=== PATIENT | male | born 1965 | race African-American/Black ===

== ENCOUNTER 2018-12-07 10:14 | Observation (INO) | payer BC ==
--- NOTE | 2018-12-07 10:44 | PDOC ---
History of Present Illness - General Chief Complaint: Shortness of Breath Stated Complaint: SOB Time Seen by Provider: 12/07/18 10:32 - History of Present Illness Initial Comments: The pt is a 53M w/ a history of HTN, HLD, and an 'odd EKG' who presents for evaluation of 2-3 days of worsening shortness of breath and orthopnea. He states that he has had similar symptoms previously but not this severe. He states that he was not able to sleep last night because of his dyspnea. Endorses intermittent nausea over the last 2 days but denies vomiting. He denies associated fevers/chills, LARA, vision changes, chest pain, abdominal pain , diarrhea, weakness, or dizziness. He states he did not take his BP meds today because he ran out yesterday. PMH: HTN, HLD PSH: L hand washout 2/2 staph, RIHR Meds: Metoprolol, Lisinopril, HCTZ, ASA 81mg Allergies: Denies SH: +Tobacco; +Social EtOH; +Occasional TH[employer] Student Advisor: Dr. Micky Briones @ [facility] 12/07/18 10:52 Past History - Past Medical History Allergies/Adverse Reactions: Allergies Allergy/AdvReac Type Severity Reaction Status Date / Time No Known Allergies Allergy Verified 12/07/18 10:15 Home Medications: Ambulatory Orders Hydrochlorothiazide [Hctz -] 25 mg PO DAILY 12/07/18 Lisinopril [Prinivil] 10 mg PO DAILY 12/07/18 Metoprolol Succinate [Toprol Xl] 100 mg PO DAILY 12/07/18 COPD: No HTN: Yes Hypercholesterolemia: Yes Other medical history: MIGRIANE - Suicide/Smoking/Psychosocial Hx Smoking Status: Yes Smoking History: Current some day smoker Number of Cigarettes Smoked Daily: 2 Information on smoking cessation initiated: Yes Hx Alcohol Use: Yes (OCASIONAL) Drug/Substance Use Hx: No Review of Systems - Review of Systems Able to Perform ROS?: Yes Comments:: GENERAL/CONSTITUTIONAL: No fever or chills. No weakness HEAD, EYES, EARS, NOSE AND THROAT: No change in vision. No ear pain or discharge. No sore throat CARDIOVASCULAR: No chest pain RESPIRATORY: Denies cough, hemoptysis GASTROINTESTINAL: No vomiting, diarrhea or constipation GENITOURINARY: No dysuria, frequency, or change in urination MUSCULOSKELETAL: No joint or muscle swelling or pain. No neck or back pain SKIN: No rash NEUROLOGIC: No headache, vertigo, loss of consciousness, or change in strength/ sensation ENDOCRINE: No increased thirst. No abnormal weight change HEMATOLOGIC/LYMPHATIC: No anemia, easy bleeding, or history of blood clots ALLERGIC/IMMUNOLOGIC: No hives or skin allergy 12/07/18 10:57 Is the patient limited Cuban proficient: No *Physical Exam - Vital Signs Last Vital Signs Temp Pulse Resp BP Pulse Ox 98 F 86 19 156/110 H 100 12/07/18 10:14 12/07/18 10:14 12/07/18 10:14 12/07/18 10:14 12/07/18 10:14 - Physical Exam Comments: GENERAL: Awake, alert, and oriented to person/place/time, in no acute distress HEAD: No signs of trauma, normocephalic, atraumatic EYES: PERRLA, EOMI, sclera anicteric, conjunctiva clear ENT: Hearing grossly normal, nares patent, oropharynx clear without exudates. Moist mucosa LUNGS: Tachypnea w/ walking and prolonged talking, mild crackles b/l but equal breath sound b/l HEART: Regular rate w/ irregular rhythm, normal S1 and S2, no murmurs appreciated, peripheral pulses normal and equal bilaterally ABDOMEN: Soft, nontender, normoactive bowel sounds. No guarding, no rebound EXTREMITIES: Normal inspection, Normal range of motion, 1+ BLE edema to mid-kerns NEUROLOGICAL: Cranial nerves II through XII grossly intact. Normal speech, normal gait, no focal sensorimotor deficits SKIN: Warm, Dry 12/07/18 11:14 ED Treatment Course - LABORATORY CBC & Chemistry Diagram: 12/07/18 10:52 12/07/18 10:52 - RADIOLOGY Radiology Studies Ordered: Category Date Time Status CHEST PA & LAT [RAD] Stat Radiology 12/07/18 10:43 Ordered Medical Decision Making - Medical Decision Making The pt is a 53M w/ a history of HTN who presents for evaluation of 3 days of HERMOSILLO and orthopnea Ddx includes ACS, HF, PNA, pulmonary effusion/edema ED Course CMP, Cardiac profile, Mg, BNP, CBC ECG CXR 12/07/18 11:14 CXR w/ no acute pathology Lytes wnl No BETH LFTs wnl 12/07/18 11:58 Call placed to pt's Cardiology office, awaiting call back. ECG of most recent from their office faxed. Both with evidence of multifocal atrial foci. ECG today w/ evidence of multiple foci; HR 80; QTc 454; T-wave inversions in I Trop I neg CK mildly elevated BNP 1135, possible new onset HF given orthopnea/HERMOSILLO and hx of dysrhythmia Will give Lasix 40mg IV once 12/07/18 12:50 Will obtain ECHO Plan for admission for likely new onset HF Pt signed out to admitting team Dispo: Admit *DC/Admit/Observation/Transfer Diagnosis at time of Disposition: Shortness of breath Heart failure Qualifiers: Heart failure type: unspecified Heart failure chronicity: unspecified Qualified Code(s): I50.9 - Heart failure, unspecified Hypertension Qualifiers: Hypertension type: unspecified Qualified Code(s): I10 - Essential (primary) hypertension - Discharge Dispostion Condition at time of disposition: Good Decision to Admit order: Yes - Referrals - Patient Instructions - Post Discharge Activity
--- NOTE | 2018-12-07 10:46 | PDOC ---
Attending Attestation - Resident Resident Name: William Barajas - ED Attending Attestation I have performed the following: I have examined & evaluated the patient, The case was reviewed & discussed with the resident, I agree w/resident's findings & plan, Exceptions are as noted - HPI HPI: 53 yo M history HTN, HL, prior abnormal EKG (unclear what the prior finding was , he follows with Dr. Micky Briones at [facility] for cardio) presenting with progressively worsening SOB for the past few days. He has noted intermittent swelling of his ankles (improved at present). Symptoms worsen when he lies flat , improve with sitting upright. He notes that he gets winded much more easily than usual, even with speaking. He also noticed that his chest is making rattling sounds when he tries to breathe at night. Denies any recent chest pain , unilateral leg swelling, fever, cough. +Nasal congestion. - Physicial Exam PE: GENERAL: Awake, alert, and fully oriented, in no acute distress HEAD: No signs of trauma EYES: PERRLA, EOMI, sclera anicteric, conjunctiva clear ENT: Auricles normal inspection, hearing grossly normal, nares patent, oropharynx clear without exudates. Moist mucosa NECK: Normal ROM, supple, no lymphadenopathy, JVD, or masses LUNGS: Good air entry B/L, with crackles appreciated mcfp up lung aguero B/L HEART: Regular rate and rhythm, normal S1 and S2, no murmurs, rubs or gallops ABDOMEN: Soft, nontender, normoactive bowel sounds. No guarding, no rebound. No masses EXTREMITIES: Normal range of motion, no edema. No clubbing or cyanosis. No cords, erythema, or tenderness NEUROLOGICAL: Cranial nerves II through XII grossly intact. Normal speech, normal gait. Motor and sensation intact SKIN: Warm, Dry, normal turgor, no rashes or lesions noted. - Medical Decision Making Pt with abnormal EKG in ED- suspicious for MAT, as there are multiple different P waves. 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 Presentation is concerning for CHF. Will obtain labs, CXR. Will plan for admission for further workup. 12/07/18 13:32 Lab findings concerning for new onset CHF. Echo ordered. Patient endorsed to hospitalist.
[2018-12-07] MEDS ORDERED: METOPROLOL TARTRATE 50 MG TABLET (FP) PO ONE (10:51)
[2018-12-07] MEDS ORDERED: HYDROCHLOROTHIAZIDE 25 MG TABLET (FP) PO ONE (10:51)
[2018-12-07] MEDS ORDERED: LISINOPRIL 10 MG TABLET (FP) PO ONE (10:51)
[2018-12-07] MEDS ORDERED: HYDROCHLOROTHIAZIDE 25 MG TABLET (FP) ONE (10:54)
[2018-12-07] MEDS ORDERED: METOPROLOL TARTRATE 50 MG TABLET (FP) ONE (10:55)
[2018-12-07] MEDS ORDERED: LISINOPRIL 5 MG TABLET (FP) ONE (10:55)
[2018-12-07 11:28] LABS: INR 1.14 (0.82-1.09); PROTHROMBIN TIME (PATIENT) 12.5 SEC (10.2-13.0)
[2018-12-07 11:32] LABS: ALBUMIN 3.7 g/dl (3.4-5.0); BILIRUBIN,TOTAL 1.2 mg/dl (0.2-1); CALCIUM 8.7 mg/dl (8.5-10); CREATININE 1.1 mg/dl (0.55-1.3); POTASSIUM 3.8 mmol/L (3.5-5.1); TOT PROT 6.9 g/dl (6.4-8.2)
[2018-12-07 13:00] LABS: BASO % 0.4 % (0-2.0); EOS % 1.2 % (0-4.5); HEMOGLOBIN 13.8 GM/dL (11.7-16.9); LYMPH % 28.5 % (8-40); MCH 30.9 pg (25.7-33.7); MCHC 32.7 g/dl (32.0-35.9); MEAN CELL VOLUME 94.2 fl (80-96); MEAN PLT VOLUME 10.3 fl (7.5-11.1); NEUT % 63.9 % (42.8-82.8); PLATELET COUNT 188 K/MM3 (134-434); RBC 4.46 M/mm3 (4.00-5.60); RDW 15.4 % (11.9-15.9); WHITE BLOOD COUNT 8.8 K/mm3 (4.0-10.0)
[2018-12-07] MEDS ORDERED: FUROSEMIDE 40 MG/4 ML INJECTABLE VIAL IVPUSH ONE ×2 (13:07→15:29)
[2018-12-07] MEDS ORDERED: FUROSEMIDE 40 MG/4 ML INJECTABLE VIAL ONE ×2 (13:13→13:17)
--- NOTE | 2018-12-07 13:23 | HP ---
CHIEF COMPLAINT: Shortness of breath PCP: formerly Dr. Moran Sword Swallower: Dr. Micky Briones [place] HISTORY OF PRESENT ILLNESS: 53 year-old male with a PMH significant for HTN, HLD, and migraines. Presented to ED earlier today with complaint of SOB, HERMOSILLO, and orthopnea x 5 days. Patient has been traveling and attending social dinners for work for the past several weeks and it has been difficult to adhere to a low-sodium diet. He works out regularly but has been noticing increased SOB and HERMOSILLO. Over the past 4 or 5 days he has become acutely SOB even when walking his dog. Last night he could not lay flat without feeling someone was putting water over his face. He felt a whistling in his chest on deep expiration. Patient estimates his dry weight is 255, he presently weighs 270. Patient denies chest pain, palpitations, dizziness , lightheadedness, diaphoresis. He occasional has mild lower extremity edema. Patient ran out of his blood pressure medications which are prescribed by Dr. Briones and which he usually takes regularly. 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[employer]; Smoking: current smoker - 4 to 5 cigarettes per week Alcohol: occasional Drugs: no Family History: four paternal uncles all before age of 50 from heart disease Allergies No Known Allergies Allergy (Verified 12/07/18 10:15) HOME MEDICATIONS: Home Medications Medication Instructions Recorded Hydrochlorothiazide [Hctz -] 25 mg PO DAILY 12/07/18 Lisinopril [Prinivil] 10 mg PO DAILY 12/07/18 Metoprolol Succinate [Toprol Xl] 100 mg PO DAILY 12/07/18 REVIEW OF SYSTEMS CONSTITUTIONAL: Absent: fever, chills, diaphoresis, generalized weakness, malaise, loss of appetite, weight change HEENT: Absent: rhinorrhea, nasal congestion, throat pain, throat swelling, difficulty swallowing, mouth swelling, ear pain, eye pain, visual changes CARDIOVASCULAR: +peripheral edema, SOB, HERMOSILLO, orthopnea Absent: chest pain, syncope, palpitations, irregular heart rate, lightheadedness RESPIRATORY: Absent: wheezing, stridor, hemoptysis GASTROINTESTINAL: Absent: abdominal pain, abdominal distension, nausea, vomiting, diarrhea, constipation, melena, hematochezia GENITOURINARY: Absent: dysuria, frequency, urgency, hesitancy, hematuria, flank pain, genital pain MUSCULOSKELETAL: Absent: myalgia, arthralgia, joint swelling, back pain, neck pain SKIN: Absent: rash, itching, pallor HEMATOLOGIC/IMMUNOLOGIC: Absent: easy bleeding, easy bruising, lymphadenopathy, frequent infections ENDOCRINE: Absent: unexplained weight gain, unexplained weight loss, heat intolerance, cold intolerance NEUROLOGIC: Absent: headache, focal weakness or paresthesias, dizziness, unsteady gait, seizure, mental status changes, bladder or bowel incontinence PSYCHIATRIC: Absent: anxiety, depression, suicidal or homicidal ideation, hallucinations. PHYSICAL EXAMINATION Vital Signs - 24 hr 12/07/18 12/07/18 12/07/18 10:14 10:50 11:26 Temperature 98 F Pulse Rate 86 Pulse Rate [ 84 96 H Apical] Respiratory 19 19 Rate Blood Pressure 156/110 H Blood Pressure 170/135 H 155/111 H [Right Arm] O2 Sat by Pulse 100 100 Oximetry (%) 12/07/18 12:26 Temperature Pulse Rate Pulse Rate [ 74 Apical] Respiratory 18 Rate Blood Pressure Blood Pressure 145/106 H [Right Arm] O2 Sat by Pulse 98 Oximetry (%) GENERAL: Awake, alert, and fully oriented, in no acute distress. HEAD: Normal with no signs of trauma. EYES: Pupils equal, round and reactive to light, extraocular movements intact, sclera anicteric, conjunctiva clear. No lid lag. EARS, NOSE, THROAT: Ears normal, nares patent, oropharynx clear without exudates. Moist mucous membranes. NECK: Normal range of motion, supple without lymphadenopathy, JVD, or masses. LUNGS: Diminished breath sounds; mildly dyspneic with speaking. HEART: Regular rate and rhythm, S1 and S2 ABDOMEN: Soft, nontender, not distended, normoactive bowel sounds, no guarding, no rebound, no masses. No hepatomegaly or splenomegaly. MUSCULOSKELETAL: Normal range of motion at all joints. No bony deformities or tenderness. No CVA tenderness. UPPER EXTREMITIES: 2+ pulses, warm, well-perfused. No cyanosis. No clubbing. No peripheral edema. LOWER EXTREMITIES: 2+ pulses, warm, well-perfused. No calf tenderness. No peripheral edema. NEUROLOGICAL: Cranial nerves II-XII intact. Normal speech. Laboratory Results - last 24 hr 12/07/18 12/07/18 12/07/18 10:52 10:52 10:52 WBC 8.8 RBC 4.46 Hgb 13.8 Hct 42.0 MCV 94.2 MCH 30.9 MCHC 32.7 RDW 15.4 Plt Count 188 MPV 10.3 Absolute Neuts (auto) 5.6 Neutrophils % 63.9 Lymphocytes % 28.5 Monocytes % 6.0 Eosinophils % 1.2 Basophils % 0.4 Nucleated RBC % 0 PT with INR INR Sodium 141 Potassium 3.8 Chloride 105 Carbon Dioxide 24 Anion Gap 12 BUN 21 H Creatinine 1.1 Est GFR (CKD-EPI)AfAm 88.98 Est GFR (CKD-EPI)NonAf 76.77 Random Glucose 126 H Calcium 8.7 Magnesium Total Bilirubin 1.2 H AST 30 ALT 31 Alkaline Phosphatase 65 Creatine Kinase Creatine Kinase Index CK-MB (CK-2) Troponin I B-Natriuretic Peptide 1135.4 H Total Protein 6.9 Albumin 3.7 12/07/18 12/07/18 12/07/18 10:52 10:52 10:52 WBC RBC Hgb Hct MCV MCH MCHC RDW Plt Count MPV Absolute Neuts (auto) Neutrophils % Lymphocytes % Monocytes % Eosinophils % Basophils % Nucleated RBC % PT with INR 12.5 INR 1.14 Sodium Potassium Chloride Carbon Dioxide Anion Gap BUN Creatinine Est GFR (CKD-EPI)AfAm Est GFR (CKD-EPI)NonAf Random Glucose Calcium Magnesium Total Bilirubin AST ALT Alkaline Phosphatase Creatine Kinase 385 H Creatine Kinase Index 1.7 CK-MB (CK-2) 6.8 H Troponin I 0.03 B-Natriuretic Peptide Total Protein Albumin 12/07/18 11:00 WBC RBC Hgb Hct MCV MCH MCHC RDW Plt Count MPV Absolute Neuts (auto) Neutrophils % Lymphocytes % Monocytes % Eosinophils % Basophils % Nucleated RBC % PT with INR INR Sodium Potassium Chloride Carbon Dioxide Anion Gap BUN Creatinine Est GFR (CKD-EPI)AfAm Est GFR (CKD-EPI)NonAf Random Glucose Calcium Magnesium 1.9 Total Bilirubin AST ALT Alkaline Phosphatase Creatine Kinase Creatine Kinase Index CK-MB (CK-2) Troponin I B-Natriuretic Peptide Total Protein Albumin ASSESSMENT/PLAN 53 year-old male with a PMH significant for HTN, HLD, and migraines. Placed on observation for hypertensive urgency and diastolic heart failure. Diastolic heart dysfunction, acute --12/07 Echo: LV normal, EF 55%, impaired relaxation; RV normal; trace to mild MR; trace TR --clinical s/s: SOB, HERMOSILLO, orthopnea, up 15lbs from dry weight; BNP >1100 --troponin neg x 1, two pending --start Lasix IVP 40mg BID --daily weight --strict I&Os --telemetry monitoring Hypertensive urgency --BP improved with dosing of home anti-hypertensives --continue lisinopril, Toprol XL; hold HCTZ while on Lasix Hyperlipidemia --not on statin therapy Migraines --stable, last migraine 2 years ago FEN Fluids: PO intake adequate Electrolytes: replete as indicated; K>4, Mg>2 Nutrition: low sodium DVT prophylaxis: subq heparin Dispo: continues to require observation. Full code. Visit type - Emergency Visit Emergency Visit: Yes ED Registration Date: 12/07/18 Care time: The patient presented to the Emergency Department on the above date and was hospitalized for further evaluation of their emergent condition. - New Patient This patient is new to me today: Yes Date on this admission: 12/07/18 - Critical Care Critical Care patient: No
--- NOTE | 2018-12-07 13:50 | HP ---
CHIEF COMPLAINT: PCP: HISTORY OF PRESENT ILLNESS: ER course was notable for: (1) (2) (3) Recent Travel: PAST MEDICAL HISTORY: PAST SURGICAL HISTORY: Social History: Smoking: Alcohol: Drugs: Family History: Allergies No Known Allergies Allergy (Verified 12/07/18 10:15) HOME MEDICATIONS: Home Medications Medication Instructions Recorded Hydrochlorothiazide [Hctz -] 25 mg PO DAILY 12/07/18 Lisinopril [Prinivil] 10 mg PO DAILY 12/07/18 Metoprolol Succinate [Toprol Xl] 100 mg PO DAILY 12/07/18 REVIEW OF SYSTEMS CONSTITUTIONAL: Absent: fever, chills, diaphoresis, generalized weakness, malaise, loss of appetite, weight change HEENT: Absent: rhinorrhea, nasal congestion, throat pain, throat swelling, difficulty swallowing, mouth swelling, ear pain, eye pain, visual changes CARDIOVASCULAR: Absent: chest pain, syncope, palpitations, irregular heart rate, lightheadedness , peripheral edema RESPIRATORY: Absent: cough, shortness of breath, dyspnea with exertion, orthopnea, wheezing, stridor, hemoptysis GASTROINTESTINAL: Absent: abdominal pain, abdominal distension, nausea, vomiting, diarrhea, constipation, melena, hematochezia GENITOURINARY: Absent: dysuria, frequency, urgency, hesitancy, hematuria, flank pain, genital pain MUSCULOSKELETAL: Absent: myalgia, arthralgia, joint swelling, back pain, neck pain SKIN: Absent: rash, itching, pallor HEMATOLOGIC/IMMUNOLOGIC: Absent: easy bleeding, easy bruising, lymphadenopathy, frequent infections ENDOCRINE: Absent: unexplained weight gain, unexplained weight loss, heat intolerance, cold intolerance NEUROLOGIC: Absent: headache, focal weakness or paresthesias, dizziness, unsteady gait, seizure, mental status changes, bladder or bowel incontinence PSYCHIATRIC: Absent: anxiety, depression, suicidal or homicidal ideation, hallucinations. PHYSICAL EXAMINATION Vital Signs - 24 hr 12/07/18 12/07/18 12/07/18 10:14 10:50 11:26 Temperature 98 F Pulse Rate 86 Pulse Rate [ 84 96 H Apical] Respiratory 19 19 Rate Blood Pressure 156/110 H Blood Pressure 170/135 H 155/111 H [Right Arm] O2 Sat by Pulse 100 100 Oximetry (%) 12/07/18 12/07/18 12:26 13:32 Temperature Pulse Rate Pulse Rate [ 74 75 Apical] Respiratory 18 18 Rate Blood Pressure Blood Pressure 145/106 H 136/113 H [Right Arm] O2 Sat by Pulse 98 98 Oximetry (%) GENERAL: Awake, alert, and fully oriented, in no acute distress. HEAD: Normal with no signs of trauma. EYES: Pupils equal, round and reactive to light, extraocular movements intact, sclera anicteric, conjunctiva clear. No lid lag. EARS, NOSE, THROAT: Ears normal, nares patent, oropharynx clear without exudates. Moist mucous membranes. NECK: Normal range of motion, supple without lymphadenopathy, JVD, or masses. LUNGS: Breath sounds equal, clear to auscultation bilaterally. No wheezes, and no crackles. No accessory muscle use. HEART: Regular rate and rhythm, normal S1 and S2 without murmur, rub or gallop. ABDOMEN: Soft, nontender, not distended, normoactive bowel sounds, no guarding, no rebound, no masses. No hepatomegaly or splenomegaly. MUSCULOSKELETAL: Normal range of motion at all joints. No bony deformities or tenderness. No CVA tenderness. UPPER EXTREMITIES: 2+ pulses, warm, well-perfused. No cyanosis. No clubbing. No peripheral edema. LOWER EXTREMITIES: 2+ pulses, warm, well-perfused. No calf tenderness. No peripheral edema. NEUROLOGICAL: Cranial nerves II-XII intact. Normal speech. Normal gait. PSYCHIATRIC: Cooperative. Good eye contact. Appropriate mood and affect. SKIN: Warm, dry, normal turgor, no rashes or lesions noted, normal capillary refill. Laboratory Results - last 24 hr 12/07/18 12/07/18 12/07/18 10:52 10:52 10:52 WBC 8.8 RBC 4.46 Hgb 13.8 Hct 42.0 MCV 94.2 MCH 30.9 MCHC 32.7 RDW 15.4 Plt Count 188 MPV 10.3 Absolute Neuts (auto) 5.6 Neutrophils % 63.9 Lymphocytes % 28.5 Monocytes % 6.0 Eosinophils % 1.2 Basophils % 0.4 Nucleated RBC % 0 PT with INR INR Sodium 141 Potassium 3.8 Chloride 105 Carbon Dioxide 24 Anion Gap 12 BUN 21 H Creatinine 1.1 Est GFR (CKD-EPI)AfAm 88.98 Est GFR (CKD-EPI)NonAf 76.77 Random Glucose 126 H Calcium 8.7 Magnesium Total Bilirubin 1.2 H AST 30 ALT 31 Alkaline Phosphatase 65 Creatine Kinase Creatine Kinase Index CK-MB (CK-2) Troponin I B-Natriuretic Peptide 1135.4 H Total Protein 6.9 Albumin 3.7 12/07/18 12/07/18 12/07/18 10:52 10:52 10:52 WBC RBC Hgb Hct MCV MCH MCHC RDW Plt Count MPV Absolute Neuts (auto) Neutrophils % Lymphocytes % Monocytes % Eosinophils % Basophils % Nucleated RBC % PT with INR 12.5 INR 1.14 Sodium Potassium Chloride Carbon Dioxide Anion Gap BUN Creatinine Est GFR (CKD-EPI)AfAm Est GFR (CKD-EPI)NonAf Random Glucose Calcium Magnesium Total Bilirubin AST ALT Alkaline Phosphatase Creatine Kinase 385 H Creatine Kinase Index 1.7 CK-MB (CK-2) 6.8 H Troponin I 0.03 B-Natriuretic Peptide Total Protein Albumin 12/07/18 11:00 WBC RBC Hgb Hct MCV MCH MCHC RDW Plt Count MPV Absolute Neuts (auto) Neutrophils % Lymphocytes % Monocytes % Eosinophils % Basophils % Nucleated RBC % PT with INR INR Sodium Potassium Chloride Carbon Dioxide Anion Gap BUN Creatinine Est GFR (CKD-EPI)AfAm Est GFR (CKD-EPI)NonAf Random Glucose Calcium Magnesium 1.9 Total Bilirubin AST ALT Alkaline Phosphatase Creatine Kinase Creatine Kinase Index CK-MB (CK-2) Troponin I B-Natriuretic Peptide Total Protein Albumin ASSESSMENT/PLAN:
[2018-12-07 14:36] VITALS: BMI 36.6
--- NOTE | 2018-12-07 14:57 | ECHO ---
Name: SHASHA CLAYTON Exam:Adult Echocardiogram Study Date: 12/07/2018 02:00 PM Age: 53 yrs Reason For Study: SOB Height: 72 in Weight: 271 lb BSA: 2.4 m2 MMode/2D Measurements & Calculations IVSd: 1.1 cm Ao root diam: 2.7 cm LVIDd: 5.2 cm LA dimension: 3.9 cm LVIDs: 3.7 cm LVPWd: 1.1 cm EDV(Teich): 129.1 ml LVOT diam: 2.0 cm ESV(Teich): 58.9 ml Doppler Measurements & Calculations MV E max kia: 108.6 cm/sec Ao V2 max: 134.0 cm/sec MV A max kia: 58.8 cm/sec Ao max P.2 mmHg MV E/A: 1.8 Ao V2 mean: 102.5 cm/sec Ao mean P.5 mmHg Ao V2 VTI: 29.1 cm ELIF(I,D): 2.4 cm2 ELIF(V,D): 2.7 cm2 LV V1 max P.9 mmHg SV(LVOT): 71.2 ml LV V1 mean P.9 mmHg LV V1 max: 111.0 cm/sec LV V1 mean: 80.6 cm/sec LV V1 VTI: 22.1 cm TR max kia: 244.7 cm/sec TR max P.9 mmHg Procedure A complete two-dimensional transthoracic echocardiogram was performed (2D, M-mode, Doppler and color flow Doppler). Left Ventricle The left ventricular size, thickness and function are normal. Ejection Fraction = 55%. The transmitra l spectral Doppler flow pattern is suggestive of impaired LV relaxation. The left ventricular wall caio on is normal. Right Ventricle The right ventricle is normal in size and function. Atria Normal left and right atrial size and function. Mitral Valve There is mild mitral annular calcification. There is trace to mild mitral regurgitation. Tricuspid Valve The tricuspid valve is normal in structure and function. There is trace tricuspid regurgitation. Righ t ventricular systolic pressure is 24 mmhg. Assuming the RA pressure is 10 mmHg. Aortic Valve The aortic valve is normal in structure and function. Pulmonic Valve The pulmonic valve is normal in structure and function. Interpretation Summary The left ventricular size, thickness and function are normal Ejection Fraction = 55%. The right ventricle is normal in size and function. Normal left and right atrial size and function. There is mild mitral annular calcification. There is trace to mild mitral regurgitation. There is trace tricuspid regurgitation. Right ventricular systolic pressure is 24 mmhg. MD Luis Antonio Lynn 12/07/2018 02:56 PM
[2018-12-07] MEDS ORDERED: POTASSIUM CHLORIDE TABS 20 MEQ TABLET.ER (FP) PO ONE (16:00)
[2018-12-07] MEDS ORDERED: MAGNESIUM SULF 50% (8.12 MEQ/2 ML-1 GM VIAL) IVPB ONE (16:00)
--- NOTE | 2018-12-07 16:16 | CON.CARD ---
Cardiology Consult (text) - Consultation Consultation Note: cc: sob hpi: 53 m hx htn here with sob. Past few days pt has noticed alcala and le edema. Last night he had orthopnea. No cp palps dizzy loc. In ER found to have chf and given iv lasix, now pt starting to feel better, less sob. Sees cardio at [facility] dr donya rhodes. pmh: per hpi psh: hernia, hand surgery social: occ smoking fam: paternal uncles with cad/hrt dz in 40s. first degree relatives with htn, no hrt dz. ros: per hpi; all others normal meds: Current Medications Furosemide (Lasix Injection -) 40 mg IVPUSH BID@0600,1400 CORINNA Heparin Sodium (Porcine) (Heparin -) 5,000 unit SQ Q8H-IV CORINNA Lisinopril (Prinivil) 10 mg PO DAILY CORINNA Metoprolol Succinate (Toprol Xl -) 100 mg PO DAILY CORINNA Home Medications Medication Instructions Recorded Hydrochlorothiazide [Hctz -] 25 mg PO DAILY 12/07/18 Lisinopril [Prinivil] 10 mg PO DAILY 12/07/18 Metoprolol Succinate [Toprol Xl] 100 mg PO DAILY 12/07/18 pe: Vital Signs Period Temp Pulse Resp BP Sys/Flanagan Pulse Ox Last 24 Hr 97.9 F-98 F 68-96 18-19 136-170/92-135 98-100 nad no jvd rrr s1s2 no mrg cta bl nl eff aaox3 trace le edema bl, no c/c abd nt nd pos bs no jaundice diaphoresis pos dp pt no carotid bruits Laboratory Last Values WBC 8.8 K/mm3 (4.0-10.0) 12/07/18 10:52 RBC 4.46 M/mm3 (4.00-5.60) 12/07/18 10:52 Hgb 13.8 GM/dL (11.7-16.9) 12/07/18 10:52 Hct 42.0 % (35.4-49) 12/07/18 10:52 MCV 94.2 fl (80-96) 12/07/18 10:52 MCH 30.9 pg (25.7-33.7) 12/07/18 10:52 MCHC 32.7 g/dl (32.0-35.9) 12/07/18 10:52 RDW 15.4 % (11.9-15.9) 12/07/18 10:52 Plt Count 188 K/MM3 (134-434) 12/07/18 10:52 MPV 10.3 fl (7.5-11.1) 12/07/18 10:52 Absolute Neuts (auto) 5.6 K/mm3 (1.5-8.0) 12/07/18 10:52 Neutrophils % 63.9 % (42.8-82.8) 12/07/18 10:52 Lymphocytes % 28.5 % (8-40) 12/07/18 10:52 Monocytes % 6.0 % (3.8-10.2) 12/07/18 10:52 Eosinophils % 1.2 % (0-4.5) 12/07/18 10:52 Basophils % 0.4 % (0-2.0) 12/07/18 10:52 Nucleated RBC % 0 % (0-0) 12/07/18 10:52 PT with INR 12.5 SEC (10.2-13.0) 12/07/18 10:52 INR 1.14 (0.82-1.09) 12/07/18 10:52 Sodium 141 mmol/L (136-145) 12/07/18 10:52 Potassium 3.8 mmol/L (3.5-5.1) 12/07/18 10:52 Chloride 105 mmol/L (98-107) 12/07/18 10:52 Carbon Dioxide 24 mmol/L (21-32) 12/07/18 10:52 Anion Gap 12 MMOL/L (8-16) 12/07/18 10:52 BUN 21 mg/dl (7-18) H 12/07/18 10:52 Creatinine 1.1 mg/dl (0.55-1.3) 12/07/18 10:52 Est GFR (CKD-EPI)AfAm 88.98 12/07/18 10:52 Est GFR (CKD-EPI)NonAf 76.77 12/07/18 10:52 Random Glucose 126 mg/dl (74-106) H 12/07/18 10:52 Calcium 8.7 mg/dl (8.5-10) 12/07/18 10:52 Magnesium 1.9 mg/dL (1.8-2.4) 12/07/18 11:00 Total Bilirubin 1.2 mg/dl (0.2-1) H 12/07/18 10:52 AST 30 U/L (15-37) 12/07/18 10:52 ALT 31 U/L (13-61) 12/07/18 10:52 Alkaline Phosphatase 65 U/L (45-117) 12/07/18 10:52 Creatine Kinase 385 U/L (26-308) H 12/07/18 10:52 Creatine Kinase Index 1.7 % (0.0-5.0) 12/07/18 10:52 CK-MB (CK-2) 6.8 ng/mL (0.5-3.6) H 12/07/18 10:52 Troponin I 0.03 ng/ml (0.00-0.05) 12/07/18 10:52 B-Natriuretic Peptide 1135.4 pg/ml (5-125) H 12/07/18 10:52 Total Protein 6.9 g/dl (6.4-8.2) 12/07/18 10:52 Albumin 3.7 g/dl (3.4-5.0) 12/07/18 10:52 echo 11/2018: nl lv/rv, no sig valve path, nl rvsp ecg: sr, pacs, nl intervals, lat twis, no st changes tele: sr, occ pvcs cxr: clear lungs a/p: 53 m hx htn here with sob. Past few days pt has noticed alcala and le edema. sob, acute diastolic chf: -pt with chf symptoms and elevated bnp, mild vol overload -continue with iv lasix, monitor daily chem7, wt -echo unremarkable -no signs acs, continue gabriel on tele -cont home bb, carole -dc hctz, cont iv lasix. upon dc would replace home hctz with lasix po htn: -cont bb, carole tob use: -smoking cessation discussed
[2018-12-07] MEDS: HEPARIN NA (PORCINE) 5,000 UNITS/ML 1ML VIAL SQ SCH (17:51)
[2018-12-08] MEDS: HEPARIN NA (PORCINE) 5,000 UNITS/ML 1ML VIAL SQ SCH ×2 (02:00→09:08)
[2018-12-08] MEDS ORDERED: FUROSEMIDE 40 MG/4 ML INJECTABLE VIAL IVPUSH SCH (06:00)
[2018-12-08 08:22] LABS: ALBUMIN 3.6 g/dl (3.4-5.0); BILIRUBIN,TOTAL 1.2 mg/dl (0.2-1); CREATININE 1.4 mg/dl (0.55-1.3); MAGNESIUM 2.1 mg/dL (1.8-2.4); POTASSIUM 3.8 mmol/L (3.5-5.1); TOT PROT 6.7 g/dl (6.4-8.2)
[2018-12-08] MEDS ORDERED: LISINOPRIL 10 MG TABLET (FP) PO SCH (10:00)
[2018-12-08] MEDS ORDERED: HYDROCHLOROTHIAZIDE 25 MG TABLET (FP) PO SCH (10:00)
[2018-12-08 10:03] VITALS: BP 141/73; PULSE 89; TEMP 97.7
[2018-12-08 10:16] LABS: BASO % 0.4 % (0-2.0); HEMATOCRIT 43.5 % (35.4-49); HEMOGLOBIN 14.3 GM/dL (11.7-16.9); LYMPH % 32.3 % (8-40); MCH 31.2 pg (25.7-33.7); MCHC 32.9 g/dl (32.0-35.9); MEAN CELL VOLUME 94.8 fl (80-96); MEAN PLT VOLUME 11.2 fl (7.5-11.1); MONO % 6.6 % (3.8-10.2); NEUT % 58.7 % (42.8-82.8); PLATELET COUNT 162 K/MM3 (134-434); RBC 4.59 M/mm3 (4.00-5.60); RDW 15.5 % (11.9-15.9); WHITE BLOOD COUNT 6.6 K/mm3 (4.0-10.0)
--- NOTE | 2018-12-08 11:48 | DS ---
Physical Exam: SUBJECTIVE: Patient seen and examined. Breathing is much improved, able to lay flat. Walked with staff in hallway without SOB. OBJECTIVE: Vital Signs Period Temp Pulse Resp BP Sys/Flanagan Pulse Ox Last 24 Hr 97.7 F-98.6 F 62-89 16-18 131-150/73-113 97-99 PHYSICAL EXAM GENERAL: The patient is awake, alert, and fully oriented, in no acute distress. HEAD: Normal with no signs of trauma. EYES: PERRL, extraocular movements intact, sclera anicteric, conjunctiva clear. ENT: Ears normal, nares patent, oropharynx clear without exudates, moist mucous membranes. NECK: Trachea midline, full range of motion, supple. LUNGS: Breath sounds equal, clear to auscultation HEART: Regular rate and rhythm, S1, S2 ABDOMEN: Soft, nontender, nondistended EXTREMITIES: 2+ pulses, warm, well-perfused, no edema. NEUROLOGICAL: Cranial nerves II through XII grossly intact. Normal speech, gait not observed. LABS Laboratory Results - last 24 hr 12/07/18 12/07/18 12/07/18 10:52 10:52 10:52 WBC 8.8 RBC 4.46 Hgb 13.8 Hct 42.0 MCV 94.2 MCH 30.9 MCHC 32.7 RDW 15.4 Plt Count 188 MPV 10.3 Absolute Neuts (auto) 5.6 Neutrophils % 63.9 Lymphocytes % 28.5 Monocytes % 6.0 Eosinophils % 1.2 Basophils % 0.4 Nucleated RBC % 0 Sodium Potassium Chloride Carbon Dioxide Anion Gap BUN Creatinine Est GFR (CKD-EPI)AfAm Est GFR (CKD-EPI)NonAf Random Glucose Hemoglobin A1c % Calcium Magnesium Total Bilirubin AST ALT Alkaline Phosphatase Creatine Kinase Index CK-MB (CK-2) Troponin I 0.03 B-Natriuretic Peptide 1135.4 H Total Protein Albumin TSH 12/07/18 12/07/18 12/07/18 10:52 17:00 23:00 WBC RBC Hgb Hct MCV MCH MCHC RDW Plt Count MPV Absolute Neuts (auto) Neutrophils % Lymphocytes % Monocytes % Eosinophils % Basophils % Nucleated RBC % Sodium Potassium Chloride Carbon Dioxide Anion Gap BUN Creatinine Est GFR (CKD-EPI)AfAm Est GFR (CKD-EPI)NonAf Random Glucose Hemoglobin A1c % Calcium Magnesium Total Bilirubin AST ALT Alkaline Phosphatase Creatine Kinase Index 1.7 CK-MB (CK-2) 6.8 H Troponin I 0.03 0.03 B-Natriuretic Peptide Total Protein Albumin TSH 12/08/18 12/08/18 12/08/18 07:05 07:05 07:05 WBC 6.6 RBC 4.59 Hgb 14.3 Hct 43.5 MCV 94.8 MCH 31.2 MCHC 32.9 RDW 15.5 Plt Count 162 MPV 11.2 H Absolute Neuts (auto) 3.9 Neutrophils % 58.7 Lymphocytes % 32.3 Monocytes % 6.6 Eosinophils % 2.0 Basophils % 0.4 Nucleated RBC % 0 Sodium 139 Potassium 3.8 Chloride 100 Carbon Dioxide 27 Anion Gap 12 BUN 27 H Creatinine 1.4 H Est GFR (CKD-EPI)AfAm 66.48 Est GFR (CKD-EPI)NonAf 57.36 Random Glucose 119 H Hemoglobin A1c % 5.8 Calcium 9.0 Magnesium 2.1 Total Bilirubin 1.2 H AST 21 ALT 26 Alkaline Phosphatase 69 Creatine Kinase Index CK-MB (CK-2) Troponin I B-Natriuretic Peptide Total Protein 6.7 Albumin 3.6 TSH 0.71 HOSPITAL COURSE: Date of Admission:12/07/18 Date of Discharge: 12/08/18 Pre hospital course 53 year-old male with a PMH significant for HTN, HLD, and migraines. Presented to ED earlier today with complaint of SOB, HERMOSILLO, and orthopnea x 5 days. Patient has been traveling and attending social dinners for work for the past several weeks and it has been difficult to adhere to a low-sodium diet. He works out regularly but has been noticing increased SOB and HERMOSILLO. Over the past 4 or 5 days he has become acutely SOB even when walking his dog. Last night he could not lay flat without feeling someone was putting water over his face. He felt a whistling in his chest on deep expiration. Patient estimates his dry weight is 255, he presently weighs 270. Patient denies chest pain, palpitations, dizziness , lightheadedness, diaphoresis. He occasional has mild lower extremity edema. Patient ran out of his blood pressure medications which are prescribed by Dr. Briones and which he usually takes regularly. ER course (1) BP 170/135, p84 (2) Troponin neg x 1 (3) Lisinopril 10mg x 1; Toprol XL 100mg x 1; Lasix IVP 40mg x 1; HCTZ 25mg x 1 Subsequent hospital course 53 year-old male with a PMH significant for HTN, HLD, and migraines. Placed on observation for hypertensive urgency and diastolic heart failure. Diastolic heart dysfunction, acute --secondary to dietary indiscretion and ran out of home meds; showed clinical s/s: SOB, HERMOSILLO, orthopnea, up 15lbs from dry weight, BNP >1100 --12/07 Echo: LV normal, EF 55%, impaired relaxation; RV normal; trace to mild MR; trace TR --received two doses of Lasix IVP 40mg, and weight dropped 4kg in 24 hours, but with bump in Cr 1.1-->1.4; no further lasix given --discharge on home meds Hypertensive urgency --BP improved with dosing of home anti-hypertensives: lisinopril and Toprol XL Hyperlipidemia --not on statin therapy Migraines --stable, last migraine 2 years ago Minutes to complete discharge: 35 Discharge Summary Reason For Visit: SHORTNESS OF BREATH,HEART FAILURE,HYPERTENSION Condition: Improved - Instructions Diet, Activity, Other Instructions: Three prescriptions have been sent to your pharmacy: lisinopril, Toprol XL, and HCTZ. Take these medications as directed. You should follow up with Dr. Micky Briones, your cardioloigst, within one week of your discharge. Return to the emergency department for any new or worsening symptoms. Referrals: Micky Briones Dr. [Other] Disposition: HOME - Home Medications Comprehensive Discharge Medication List: Ambulatory Orders Hydrochlorothiazide [Hctz -] 25 mg PO DAILY 12/07/18 Lisinopril [Prinivil] 10 mg PO DAILY 12/07/18 Metoprolol Succinate [Toprol Xl] 100 mg PO DAILY 12/07/18 This patient is new to me today: No Emergency Visit: Yes ED Registration Date: 12/07/18 Care time: The patient presented to the Emergency Department on the above date and was hospitalized for further evaluation of their emergent condition. Critical Care patient: No - Discharge Referral Referred to [facility] No
--- NOTE | 2018-12-08 17:23 | EKG ---
Test Reason : Blood Pressure : / mmHG Vent. Rate : 080 BPM Atrial Rate : 080 BPM P-R Int : 146 ms QRS Dur : 078 ms QT Int : 394 ms P-R-T Axes : 058 -02 093 degrees QTc Int : 454 ms SINUS RHYTHM WITH PREMATURE SUPRAVENTRICULAR COMPLEXES CANNOT RULE OUT INFERIOR INFARCT , AGE UNDETERMINED ABNORMAL ECG WHEN COMPARED WITH ECG OF 07-DEC-2018 10:38, PREMATURE VENTRICULAR COMPLEXES ARE NO LONGER PRESENT PREMATURE SUPRAVENTRICULAR COMPLEXES ARE NOW PRESENT Confirmed by BIANCA ALFARO MD ([id number]) on 12/08/2018 5:23:45 PM Referred By: DEBO PÉREZ Confirmed By:BIANCA ALFARO MD
--- NOTE | 2018-12-08 17:24 | EKG ---
Test Reason : Blood Pressure : / mmHG Vent. Rate : 096 BPM Atrial Rate : 096 BPM P-R Int : 156 ms QRS Dur : 080 ms QT Int : 396 ms P-R-T Axes : 053 -10 073 degrees QTc Int : 500 ms SINUS RHYTHM WITH MARKED SINUS ARRHYTHMIA WITH OCCASIONAL PREMATURE VENTRICULAR COMPLEXES NONSPECIFIC T WAVE ABNORMALITY PROLONGED QT ABNORMAL ECG WHEN COMPARED WITH ECG OF 17-MAR-2007 16:42, PREMATURE VENTRICULAR COMPLEXES ARE NOW PRESENT NONSPECIFIC T WAVE ABNORMALITY HAS REPLACED INVERTED T WAVES IN INFERIOR LEADS QT HAS LENGTHENED Confirmed by ANGELINA NGUYEN, BIANCA ([id number]) on 12/08/2018 5:24:05 PM Referred By: DEBO PÉREZ Confirmed By:BIANCA ALFARO MD
--- NOTE | 2018-12-09 12:56 | EKG ---
Test Reason : Blood Pressure : / mmHG Vent. Rate : 064 BPM Atrial Rate : 052 BPM P-R Int : 156 ms QRS Dur : 082 ms QT Int : 432 ms P-R-T Axes : 048 005 115 degrees QTc Int : 445 ms SINUS BRADYCARDIA WITH PREMATURE SUPRAVENTRICULAR COMPLEXES CANNOT RULE OUT ANTERIOR INFARCT , AGE UNDETERMINED ABNORMAL ECG WHEN COMPARED WITH ECG OF 07-DEC-2018 10:39, NO SIGNIFICANT CHANGE WAS FOUND Confirmed by DOM NGUYEN, JOSE ([id number]) on 12/09/2018 12:56:06 PM Referred By: DR DIALLO Confirmed By:JOSE FERNANDES MD
== END 2018-12-08 12:40 | disposition home or self-care (01) ==
LOC: FER 10:14 → FM/S 13:18
PROVIDERS: ADMIT Internal Medicine; ATTEND Nurse Practitioner Acute Care
PROC: 3E033GC Introduction of Other Therapeutic Substance into Peripheral Vein, Percutaneous Approach (ICD-10-PCS; principal; 2018-12-07)
PROC: 3E013GC Introduction of Other Therapeutic Substance into Subcutaneous Tissue, Percutaneous Approach (ICD-10-PCS; 2018-12-07)
DX: I11.0 Hypertensive heart disease with heart failure (principal); I50.31 Acute diastolic (congestive) heart failure; I16.0 Hypertensive urgency; R06.02 Shortness of breath; E78.5 Hyperlipidemia, unspecified; F17.210 Nicotine dependence, cigarettes, uncomplicated
CPT/HCPCS: 36415; 71045-TC-FY; 80053; 82550; 82553; 83036; 83735; 83880; 84443; 84484; 85025; 85610; 93005; 93306-TC; 99284-25; G0378; J1644

== ENCOUNTER 2025-02-25 21:28 | Emergency (ER) | payer BC ==
[2025-02-25] MEDS ORDERED: AMOX TR/POT CLAV 875MG/125MG TABLETS (FP) PO ONE (21:42)
[2025-02-25] MEDS ORDERED: DALBAVANCIN HCL 500 MG VIAL (RESTRICTED TO ID ONLY) IVPB ONE (21:46)
[2025-02-25 21:48] VITALS: BP 119/89; PULSE 78; RESP 17; TEMP 97.9; BMI 36.6
[2025-02-25] MEDS ORDERED: KETOROLAC TROMETHAMINE 30 MG/1 ML VIAL ONE (22:02)
[2025-02-25] MEDS: DALBAVANCIN HCL 1,500 MG in DEXTROSE 5%-WATER - 500 ML IVPB ONE (22:02)
[2025-02-25] MEDS: KETOROLAC TROMETHAMINE 30 MG/1 ML VIAL IVPUSH ONE (22:04)
[2025-02-25] MEDS ORDERED: AMOX TR/POT CLAV 875MG/125MG TABLETS (FP) ONE (22:23)
[2025-02-25] MEDS: AMOX TR/POT CLAV 875MG/125MG TABLETS (FP) PO ONE (22:24)
[2025-02-25 22:26] LABS: BASOPHILS # 0.03 x10^3/uL (0.01-0.08)
[2025-02-25 22:30] LABS: ABSOLUTE IMMATURE GRANULOCYTES 0.02 x10^3/uL (0.0-0.031); EOSINOPHIL % 1.3 % (0.8-7.0); EOSINOPHILS # 0.12 x10^3/uL (0.04-0.54); MCHC 30.9 g/dl (32.3-36.5); MEAN CELL VOLUME 83.8 fl (79.0-92.2); MEAN PLT VOLUME 10.6 fl (9.4-12.4); MONOCYTE # 0.79 x10^3/uL (0.30-0.82); MONOCYTE % 8.6 % (5.3-12.2); RDW 18.6 % (12.2-16.1)
[2025-02-25 22:50] LABS: ALK PHOS 70.0 U/L (45-117); CO2 26.0 mmol/L (21-32); CREATININE 1.3 mg/dl (0.6-1.3); GLUCOSE,RANDOM 110.0 mg/dl (74-106); SGOT/AST 14.0 U/L (15-37); SGPT/ALT 15.0 U/L (7-52); TOT PROT 6.6 g/dl (6.4-8.2)
[2025-02-25 23:13] LABS: ERYTHROCYTE SEDIMENTATION RATE 17 mm/hr (0-20)
[2025-02-26 01:26] LABS: HCV DIAGNOSTIC IN-HOUSE W/RFLX NON-REACTIVE (NONREACTIVE)
[2025-02-26 15:01] LABS: HIV INTERPRETATION NEGATIVE (NEGATIVE)
== END 2025-02-26 00:50 | disposition home or self-care (01) ==
LOC: FER 21:28
PROC: 3E03329 Introduction of Other Anti-infective into Peripheral Vein, Percutaneous Approach (ICD-10-PCS; principal; 2025-02-25)
PROC: 3E0333Z Introduction of Anti-inflammatory into Peripheral Vein, Percutaneous Approach (ICD-10-PCS; 2025-02-25)
DX: L03.116 Cellulitis of left lower limb (principal); M79.662 Pain in left lower leg
CPT/HCPCS: 36415; 73700-TC-RT; 80053; 85025; 85651; 86140; 86803; 87389; 99285-25; J0875

== ENCOUNTER 2025-04-17 17:51 | Inpatient (IN) | payer BC ==
[2025-04-17] MEDS ORDERED: ACETAMINOPHEN INJECTION 100 ML ONE (18:58)
[2025-04-17] MEDS: ACETAMINOPHEN 1000 MG/100 ML BAG IVPB ONE (18:59)
[2025-04-17] MEDS ORDERED: VANCOMYCIN 1,000 MG VIAL (RESTRICTED TO ID ONLY) ONE (19:09)
[2025-04-17 19:16] LABS: ABSOLUTE IMMATURE GRANULOCYTES 0.01 x10^3/uL (0.0-0.031); BASOPHILS # 0.03 x10^3/uL (0.01-0.08); EOSINOPHIL % 1.2 % (0.8-7.0); EOSINOPHILS # 0.11 x10^3/uL (0.04-0.54); MCHC 30.3 g/dl (32.3-36.5); MEAN CELL VOLUME 83.7 fl (79.0-92.2); MEAN PLT VOLUME 10.2 fl (9.4-12.4); MONOCYTE # 0.69 x10^3/uL (0.30-0.82); MONOCYTE % 7.7 % (5.3-12.2); RDW 19.4 % (12.2-16.1)
[2025-04-17] MEDS: VANCOMYCIN 2,000 MG in DEXTROSE 5%-WATER - 500 ML IVPB ONE (19:43)
[2025-04-17 19:53] LABS: ERYTHROCYTE SEDIMENTATION RATE 14 mm/hr (0-20)
[2025-04-17 19:58] LABS: ALK PHOS 68.0 U/L (45-117); CO2 27.0 mmol/L (21-32); CREATININE 1.9 mg/dl (0.6-1.3); GLUCOSE,RANDOM 121.0 mg/dl (74-106); SGOT/AST 13.0 U/L (15-37); SGPT/ALT 15.0 U/L (7-52); TOT PROT 6.4 g/dl (6.4-8.2)
[2025-04-17] MEDS: CARVEDILOL 12.5 MG TABLET (FP) PO SCH (22:16)
[2025-04-17] MEDS: APIXABAN 5 MG TABLET PO SCH (22:16)
[2025-04-17] MEDS: ATORVASTATIN CA 40 MG TABLET (FP) PO SCH (22:16)
[2025-04-17] MEDS: ACETAMINOPHEN 325 MG TABLET (FP) PO PRN (22:20)
[2025-04-18] MEDS: EMPAGLIFLOZIN (JARDIANCE) 10 MG TABLET PO SCH (06:45)
[2025-04-18 07:50] LABS: ABSOLUTE IMMATURE GRANULOCYTES 0.01 x10^3/uL (0.0-0.031); BASOPHILS # 0.03 x10^3/uL (0.01-0.08); EOSINOPHIL % 1.4 % (0.8-7.0); EOSINOPHILS # 0.10 x10^3/uL (0.04-0.54); MCHC 30.6 g/dl (32.3-36.5); MEAN CELL VOLUME 84.2 fl (79.0-92.2); MEAN PLT VOLUME 10.4 fl (9.4-12.4); MONOCYTE # 0.50 x10^3/uL (0.30-0.82); MONOCYTE % 7.1 % (5.3-12.2); RDW 19.3 % (12.2-16.1)
[2025-04-18 08:56] LABS: CO2 29.0 mmol/L (21-32); CREATININE 1.4 mg/dl (0.6-1.3); GLUCOSE,RANDOM 103.0 mg/dl (74-106)
[2025-04-18] MEDS: VANCOMYCIN PREMIX 1.5 GM 1,500 MG/300 ML BAG IVPB SCH (09:10)
[2025-04-18] MEDS: AMIODARONE HCL 200 MG TABLET PO SCH (09:12)
[2025-04-18] MEDS: PANTOPRAZOLE 40 MG TABLET PO SCH (09:12)
[2025-04-18] MEDS: CEFTRIAXONE 1 GM in DEXTROSE 5%-WATER - 50 ML IVPB SCH (11:26)
[2025-04-18 16:52] VITALS: BMI 37.2
[2025-04-19 08:29] LABS: ABSOLUTE IMMATURE GRANULOCYTES 0.01 x10^3/uL (0.0-0.031); BASOPHILS # 0.03 x10^3/uL (0.01-0.08); EOSINOPHIL % 1.0 % (0.8-7.0); EOSINOPHILS # 0.07 x10^3/uL (0.04-0.54); MCHC 30.5 g/dl (32.3-36.5); MEAN CELL VOLUME 83.7 fl (79.0-92.2); MEAN PLT VOLUME 10.0 fl (9.4-12.4); MONOCYTE # 0.57 x10^3/uL (0.30-0.82); MONOCYTE % 7.8 % (5.3-12.2); RDW 19.2 % (12.2-16.1)
[2025-04-19 08:59] LABS: ALK PHOS 73.0 U/L (45-117); CO2 29.0 mmol/L (21-32); CREATININE 1.3 mg/dl (0.6-1.3); GLUCOSE,RANDOM 109.0 mg/dl (74-106); SGOT/AST 14.0 U/L (15-37); SGPT/ALT 15.0 U/L (7-52); TOT PROT 6.2 g/dl (6.4-8.2)
[2025-04-19] MEDS: VANCOMYCIN PREMIX 1.5 GM 1,500 MG/300 ML BAG IVPB SCH (09:48)
[2025-04-20] MEDS ORDERED: VANCOMYCIN PREMIX 1.5 GM 1,500 MG/300 ML BAG IVPB SCH (08:00)
[2025-04-20 08:15] LABS: ABSOLUTE IMMATURE GRANULOCYTES 0.01 x10^3/uL (0.0-0.031); BASOPHILS # 0.03 x10^3/uL (0.01-0.08); EOSINOPHIL % 0.8 % (0.8-7.0); EOSINOPHILS # 0.06 x10^3/uL (0.04-0.54); MCHC 30.4 g/dl (32.3-36.5); MEAN CELL VOLUME 83.6 fl (79.0-92.2); MEAN PLT VOLUME 10.4 fl (9.4-12.4); MONOCYTE # 0.49 x10^3/uL (0.30-0.82); MONOCYTE % 6.8 % (5.3-12.2); RDW 19.1 % (12.2-16.1)
[2025-04-20 08:47] LABS: ALK PHOS 76.0 U/L (45-117); CO2 29.0 mmol/L (21-32); CREATININE 1.4 mg/dl (0.6-1.3); GLUCOSE,RANDOM 116.0 mg/dl (74-106); SGOT/AST 12.0 U/L (15-37); SGPT/ALT 15.0 U/L (7-52); TOT PROT 6.3 g/dl (6.4-8.2)
[2025-04-20] MEDS: COLLAGENASE CLOSTRIDIUM HIST. 30 GRAMS TUBE TP SCH (09:54)
[2025-04-20] MEDS: VANCOMYCIN PREMIX 1.5 GM 1,500 MG/300 ML BAG IVPB SCH (09:54)
[2025-04-20] MEDS: PIPERACILLIN/TAZOB 3.375 GM 3.375 GM in DEXTROSE 5%-WATER - 50 ML IVPB SCH (12:17)
[2025-04-21 06:29] VITALS: RESP 18
[2025-04-21 13:27] LABS: ALK PHOS 80.0 U/L (45-117); CO2 28.0 mmol/L (21-32); CREATININE 1.5 mg/dl (0.6-1.3); GLUCOSE,RANDOM 107.0 mg/dl (74-106); SGOT/AST 14.0 U/L (15-37); SGPT/ALT 16.0 U/L (7-52); TOT PROT 6.6 g/dl (6.4-8.2)
[2025-04-21 13:43] LABS: ABSOLUTE IMMATURE GRANULOCYTES 0.01 x10^3/uL (0.0-0.031); BASOPHILS # 0.04 x10^3/uL (0.01-0.08); EOSINOPHIL % 1.1 % (0.8-7.0); EOSINOPHILS # 0.09 x10^3/uL (0.04-0.54); MCHC 30.1 g/dl (32.3-36.5); MEAN CELL VOLUME 83.7 fl (79.0-92.2); MEAN PLT VOLUME 10.4 fl (9.4-12.4); MONOCYTE # 0.63 x10^3/uL (0.30-0.82); MONOCYTE % 7.8 % (5.3-12.2); RDW 19.3 % (12.2-16.1)
[2025-04-21 14:14] VITALS: BP 112/87; PULSE 61; TEMP 98.6
== END 2025-04-21 18:26 | disposition home or self-care (01) | DRG 603 ==
LOC: FER 17:51 → SUATTDRO 17:51 → FM/S 20:04
PROVIDERS: ADMIT Hospitalist
DX: L08.9 Local infection of the skin and subcutaneous tissue, unspecified (principal); I50.9 Heart failure, unspecified; E66.9 Obesity, unspecified; Z68.37 Body mass index [BMI] 37.0-37.9, adult; E78.5 Hyperlipidemia, unspecified
CPT/HCPCS: 36415; 71046-TC-FY; 73590-TC-LT-FY; 80048; 80053; 81003; 82570; 84156; 85025; 85651; 86140; 87040; 87070; 87205; 93005; 93971-TC-RT; 99285-25